=== PATIENT | male | born 1965 | race Caucasian/White ===

== ENCOUNTER → 2017-12-31 | Outpatient (CLI) | payer OTHER ==
[~2017-12-31] MED LIST: CRESTOR10 MG PO; LOSARTAN POTAS100 MG PO; TYLENOL EXTRA500 MG PO
== END | disposition home or self-care (01) ==
LOC: CDC 10:20
DX: Z01.810 Encounter for preprocedural cardiovascular examination (principal); M19.012 Primary osteoarthritis, left shoulder; M25.512 Pain in left shoulder; M75.42 Impingement syndrome of left shoulder
CPT/HCPCS: 93000

== ENCOUNTER 2018-01-16 08:52 | Day surgery (SDC) | payer OTHER ==
[~2018-01-16] VITALS: Ht 182.9 cm; Wt 93.0 kg
[~2018-01-16 08:52] MED LIST changes: +LOSARTAN POTASS50 MG PO; +ROSUVASTATIN CA20 MG PO
[2018-01-16 09:22] VITALS: BP 126/79
[2018-01-16 14:54] VITALS: BP 124/65
[2018-01-16 16:02] VITALS: BP 139/76
== END 2018-01-16 16:15 | disposition home or self-care (01) ==
LOC: SDC 08:52
DX: M25.812 Other specified joint disorders, left shoulder (principal); M19.012 Primary osteoarthritis, left shoulder; S43.432A Superior glenoid labrum lesion of left shoulder, initial encounter; X58.XXXA Exposure to other specified factors, initial encounter; E78.00 Pure hypercholesterolemia, unspecified; I10 Essential (primary) hypertension
CPT/HCPCS: J0131; J0171; J0330; J0690; J1100; J2405; J2795; J3010